=== PATIENT | male | born 1990 | race American Indian/Alaskan Native ===

== ENCOUNTER 2017-07-28 22:11 | Emergency (ER) | payer SELFPAY ==
[2017-07-28 22:28] VITALS: BP 116/74
[2017-07-28 23:04] LABS: Basophils # (Auto) 0.1 K/mm3 (0.0-0.1); Basophils % (Auto) 1.6 % (0.0-1.8); Eosinophils # (Auto) 0.1 K/mm3 (0.0-0.4); Eosinophils % (Auto) 1.9 % (0.0-4.3); Hematocrit 42.1 % (35.5-45.6); Hemoglobin 13.5 gm/dl (11.8-15.2); Lymphocytes # (Auto) 2.3 K/mm3 (1.2-5.4); Lymphocytes % (Auto) 29.1 % (13.4-35.0); Mean Corpuscular HGB Conc 32 % (32-34); Mean Corpuscular Volume 72 fl (84-94); Monocytes # (Auto) 0.6 K/mm3 (0.0-0.8); Monocytes % (Auto) 7.3 % (0.0-7.3); Platelet Count 267 K/mm3 (140-440); Red Blood Count 5.88 M/mm3 (3.65-5.03); Red Cell Distribution Width 14.7 % (13.2-15.2)
[2017-07-28 23:08] LABS: Bilirubin,Urine NEG (Negative); Blood,Urine NEG (Negative); Color,Urine Yellow (Yellow); Mucus,Urine 3+ /HPF; Protein,Urine <15 mg/dL mg/dL (Negative); Urobilinogen,Urine < 2.0 mg/dL (<2.0)
[2017-07-28 23:09] LABS: Mean Corpuscular Hemoglobin 23 pg (28-32)
[2017-07-28 23:19] LABS: Alanine Aminotransferase 14 units/L (7-56); Albumin 4.4 g/dL (3.9-5); BUN/Creatinine Ratio 10; Blood Urea Nitrogen 11 mg/dL (9-20); Calcium 8.9 mg/dL (8.4-10.2); Hemolysis Index 10; Lipase 24 units/L (13-60)
[2017-07-29] MEDS ORDERED: PEPCID PO ONE (01:02)
[2017-07-29] MEDS ORDERED: ULTRAM PO ONE (01:02)
[2017-07-29] MEDS ORDERED: ZOFRAN ODT PO ONE (01:02)
--- NOTE | 2017-07-29 01:45 | Emergency Department Report ---
ED N/V/D HPI - General Chief complaint: Abdominal Pain Stated complaint: ABDOMINAL PAIN Time Seen by Provider: 07/29/17 00:52 Source: patient Mode of arrival: Ambulatory Limitations: No Limitations - History of Present Illness Initial comments: 26-year-old male with no significant past medical or surgical history presents to the hospital complaining of epigastric pain with vomiting 3 days. Pain described as a 3/10 nauseated/not feeling. Pain is intermittent. Somewhat worse with palpation. Patient vomited several specks of blood and then vomited several times without any blood. He denies fever, melena, hematochezia, recent travel, or sick contacts. Patient thought he had food poisoning. He has had very little by mouth intake due to symptoms. Denies lightheadedness, dizziness , or syncope. - Related Data Previous Rx's Medication Instructions Recorded Last Taken Type Omeprazole Magnesium [PriLOSEC Otc] 20 mg PO QDAY #15 tablet. 07/29/17 Unknown Rx Ondansetron [Zofran Odt] 4 mg PO Q8HR PRN #20 tab.rapdis 07/29/17 Unknown Rx traMADol [Ultram 50 MG tab] 50 mg PO Q6HR PRN #14 tablet 07/29/17 Unknown Rx Allergies Allergy/AdvReac Type Severity Reaction Status Date / Time No Known Allergies Allergy Unverified 07/28/17 22:28 ED Review of Systems ROS: Stated complaint: ABDOMINAL PAIN Other details as noted in HPI Comment: All other systems reviewed and negative Other: Constitutional: No fevers chills Eyes: No eye pain visual changes ENT: No ear pain or throat pain Neck: Denies pain Respiratory: Denies cough wheezing shortness of breath Cardiovascular: Denies chest pain, palpitations, syncope GI: Has been HPI : Denies dysuria Musculoskeletal: Denies back pain Skin: Denies rash, lesions, erythema Neurologic: Denies headache, numbness, weakness Psychiatric: Denies suicidal ideation, hallucinations ED Past Medical Hx - Past Medical History Previous Medical History?: No - Surgical History Past Surgical History?: No - Social History Smoking Status: Current Every Day Smoker Substance Use Type: None - Medications Home Medications: Home Medications Medication Instructions Recorded Confirmed Last Taken Type Omeprazole Magnesium [PriLOSEC Otc] 20 mg PO QDAY #15 tablet. 07/29/17 Unknown Rx Ondansetron [Zofran Odt] 4 mg PO Q8HR PRN #20 tab.rapdis 07/29/17 Unknown Rx traMADol [Ultram 50 MG tab] 50 mg PO Q6HR PRN #14 tablet 07/29/17 Unknown Rx ED Physical Exam - General Limitations: No Limitations - Other Other exam information: General: No limitations, patient is alert in no acute distress Head exam: Atraumatic, normocephalic Eyes exam: Normal appearance, pupils equal reactive to light, nonicteric sclera ENT: Moist mucous membrane Neck exam: Normal inspection, full range of motion, no meningismus nontender Respiratory exam: Clear to auscultation bilateral, no wheezes, rales, crackles Cardiovascular: Normal rate and rhythm, normal heart sounds Abdomen: Soft, nondistended, mild epigastric tenderness, with normal bowel sounds, no rebound, or guarding Extremity: Full range of motion normal inspection no deformity Back: Normal Inspection, full range of motion, no tenderness Neurologic: Alert, oriented x3, cranial nerves intact, no motor or sensory deficit Psychiatric: normal affect, normal mood Skin: Warm, dry, intact ED Course Vital Signs 07/28/17 07/29/17 22:25 01:23 Temperature 98.3 F Pulse Rate 80 Respiratory 16 18 Rate Blood Pressure 116/74 O2 Sat by Pulse 100 Oximetry - Reevaluation(s) Reevaluation #1: 07/29/17 01:42 Patient treated with by mouth Pepcid, Zofran, and tramadol without relief. Tolerating by mouth ED Medical Decision Making - Lab Data Result diagrams: 07/28/17 22:44 07/28/17 22:44 Lab Results 07/28/17 07/28/17 07/28/17 Range/Units 22:38 22:44 22:44 WBC 8.0 (4.5-11.0) K/mm3 RBC 5.88 H (3.65-5.03) M/mm3 Hgb 13.5 (11.8-15.2) gm/dl Hct 42.1 (35.5-45.6) % MCV 72 L (84-94) fl MCH 23 L (28-32) pg MCHC 32 (32-34) % RDW 14.7 (13.2-15.2) % Plt Count 267 (140-440) K/mm3 Lymph % (Auto) 29.1 (13.4-35.0) % [place] % (Auto) 7.3 (0.0-7.3) % Eos % (Auto) 1.9 (0.0-4.3) % Baso % (Auto) 1.6 (0.0-1.8) % Lymph # 2.3 (1.2-5.4) K/mm3 [place] # 0.6 (0.0-0.8) K/mm3 Eos # 0.1 (0.0-0.4) K/mm3 Baso # 0.1 (0.0-0.1) K/mm3 Seg Neutrophils % 60.1 (40.0-70.0) % Seg Neutrophils # 4.8 (1.8-7.7) K/mm3 Sodium 140 (137-145) mmol/L Potassium 3.9 (3.6-5.0) mmol/L Chloride 97.6 L (98-107) mmol/L Carbon Dioxide 30 (22-30) mmol/L Anion Gap 16 mmol/L BUN 11 (9-20) mg/dL Creatinine 1.1 (0.8-1.5) mg/dL Estimated GFR > 60 ml/min BUN/Creatinine Ratio 10 % Glucose 97 (75-100) mg/dL Calcium 8.9 (8.4-10.2) mg/dL Total Bilirubin 0.40 (0.1-1.2) mg/dL AST 24 (5-40) units/L ALT 14 (7-56) units/L Alkaline Phosphatase 68 (35-129) units/L Total Protein 7.2 (6.3-8.2) g/dL Albumin 4.4 (3.9-5) g/dL Albumin/Globulin Ratio 1.6 % Lipase 24 (13-60) units/L Urine Color Yellow (Yellow) Urine Turbidity Clear (Clear) Urine pH 6.0 (5.0-7.0) Ur Specific [place] 1.020 (1.003-1.030) Urine Protein <15 mg/dl (Negative) mg/dL Urine Glucose (UA) Neg (Negative) mg/dL Urine Ketones Tr (Negative) mg/dL Urine Blood Neg (Negative) Urine Nitrite Neg (Negative) Urine Bilirubin Neg (Negative) Urine Urobilinogen < 2.0 (<2.0) mg/dL Ur Leukocyte Esterase Neg (Negative) Urine WBC (Auto) 2.0 (0.0-6.0) /HPF Urine RBC (Auto) 4.0 (0.0-6.0) /HPF U Epithel Cells (Auto) < 1.0 (0-13.0) /HPF Urine Mucus 3+ /HPF - Medical Decision Making Labs unremarkable. UA shows mild dehydration but no signs of tachycardia or dizziness. Plan to discharge patient home with symptomatic treatment for gastritis. Outpatient follow-up will be encouraged - Differential Diagnosis gastritis, PUD, pancreatitis, food poisoning Critical Care Time: No Critical care attestation.: If time is entered above; I have spent that time in minutes in the direct care of this critically ill patient, excluding procedure time. ED Disposition Clinical Impression: Gastritis Disposition: TO HOME OR SELFCARE Is pt being admited?: No Does the pt Need Aspirin: No Condition: Stable Instructions: Gastritis (ED) Additional Instructions: Take the medication as prescribed. Follow-up with your doctor or with the dentist as clinic provided. Return if symptoms worsen as indicated by your discharge instructions. Prescriptions: Omeprazole Magnesium [PriLOSEC Otc] 20 mg PO QDAY #15 tablet. Ondansetron [Zofran Odt] 4 mg PO Q8HR PRN #20 tab.rapdis PRN Reason: Nausea And Vomiting traMADol [Ultram 50 MG tab] 50 mg PO Q6HR PRN #14 tablet PRN Reason: Pain Referrals: [facility] [Provider Group] - 3-5 Days ANAYA HERMOSILLO MD [Staff Physician] - 3-5 Days Time of Disposition: 01:45
== END 2017-07-29 02:06 | disposition home or self-care (01) ==
LOC: ED 22:11
DX: K29.70 Gastritis, unspecified, without bleeding (principal); F17.200 Nicotine dependence, unspecified, uncomplicated
CPT/HCPCS: 36415; 80053; 81001; 83690; 85025; 99283; Q0162